=== PATIENT | male | born 1980 | race Caucasian/White ===

== ENCOUNTER → 2018-01-17 | Outpatient (CLI) | payer OTHER ==
--- NOTE | 2018-01-17 12:27 | DIAGNOSTIC IMAGING REPORT ---
CERVICAL SPINE 2 OR 3 VIEWS HISTORY: 37 years-old Male S16.1XXA Cervical strain acute posttraumatic neck pain COMPARISON: Skull radiograph of same day TECHNIQUE: 3 views of the cervical spine FINDINGS: No acute fracture or subluxation. No significant degenerative changes. Mild straightening of the normal cervical lordosis. No prevertebral soft tissue swelling. Imaged lung apices appear clear. IMPRESSION: No acute process. The above report was generated using voice recognition software. It may contain grammatical, syntax or spelling errors. Electronically signed by: Walter Wagner M.D. 01/17/2018 12:26 PM Dictated Date/Time: 01/17/2018 12:25 PM
--- NOTE | 2018-01-17 12:28 | DIAGNOSTIC IMAGING REPORT ---
SKULL MIN 4 VIEWS CLINICAL HISTORY: S09.90XA Head injury trauma. Pain. COMPARISON STUDY: No previous studies for comparison. FINDINGS: Normal study. No acute abnormality. IMPRESSION: Normal study The above report was generated using voice recognition software. It may contain grammatical, syntax or spelling errors. Electronically signed by: Marcos Lau M.D. 01/17/2018 12:27 PM Dictated Date/Time: 01/17/2018 12:19 PM
--- NOTE | 2018-01-17 12:31 | DIAGNOSTIC IMAGING REPORT ---
LEFT SHOULDER 3 VIEWS HISTORY: Left shoulder pain. M25.512 COMPARISON: None. FINDINGS: There is no fracture or dislocation. Soft tissues are unremarkable. The left clavicle is intact. IMPRESSION: No fracture or dislocation within the left shoulder. Electronically signed by: Дмитрий Nelson M.D. 01/17/2018 12:30 PM Dictated Date/Time: 01/17/2018 12:27 PM
--- NOTE | 2018-01-17 12:31 | DIAGNOSTIC IMAGING REPORT ---
R KNEE 1 OR 2 VIEWS ROUTINE CLINICAL HISTORY: S89.90XA Knee injury trauma. Pain. COMPARISON: None. DISCUSSION: The bones and joint spaces appear intact. There is no evidence of fracture, dislocation or bony disease. There is no evidence for soft tissue swelling. IMPRESSION: Negative study. The above report was generated using voice recognition software. It may contain grammatical, syntax or spelling errors. Electronically signed by: Marcos Lau M.D. 01/17/2018 12:30 PM Dictated Date/Time: 01/17/2018 12:29 PM
--- NOTE | 2018-01-17 12:33 | DIAGNOSTIC IMAGING REPORT ---
LEFT HAND 3 VIEWS HISTORY: LEFT HAND PAIN COMPARISON: None. FINDINGS: There is no fracture or dislocation. Soft tissues are unremarkable. No radiopaque foreign bodies. IMPRESSION: No fractures. Electronically signed by: Дмитрий Nelson M.D. 01/17/2018 12:32 PM Dictated Date/Time: 01/17/2018 12:30 PM
== END | disposition home or self-care (01) ==
LOC: C.RAD1850 11:51
PROVIDERS: ATTEND Nurse Practitioner Family
DX: S09.90XA Unspecified injury of head, initial encounter (principal); S16.1XXA Strain of muscle, fascia and tendon at neck level, initial encounter; S89.91XA Unspecified injury of right lower leg, initial encounter; S69.90XA Unspecified injury of unspecified wrist, hand and finger(s), initial encounter; M25.512 Pain in left shoulder; X58.XXXA Exposure to other specified factors, initial encounter